=== PATIENT | female | born 1940 | race Caucasian/White ===

== ENCOUNTER 2017-02-01 04:22 | Emergency (ER) | payer MEDICARE ==
[~2017-02-01 04:22] MED LIST: ASP81TEC; ATEN25TA7; ATEN50TA7; LORA-302; ONDA8TAB10 PO; OXYC-530 PO; TUMS; [UNRECOGNIZED DRUG - CODE] PO; hctz
[2017-02-01 04:34] VITALS: BP 176/71; PULSE 57; RESP 10; O2SAT 95
[2017-02-01 04:42] LABS: BASOPHILS % (AUTO) 0.4 % (0-3); EOSINOPHILS % (AUTO) 2.6 % (0-5); Mean Corpuscular Hemoglobin 30.2 pg (27.0-35.0); NEUTROPHILS % (AUTO) 58.3 % (40-74); Platelet Count 250 bil/L (150-400)
--- NOTE | 2017-02-01 04:46 | ED.REPORT ---
HPI-Chest Pain 40 and Over Date of Service Feb 01, 2017 ED Provider: Mesfin Dempsey MD Pt is a 76 year old female with a history of anxiety, panic attacks, A-fib, HTN , GERD, and hyperlipidemia who presents to the ED complaining of heavy chest pain onset prior to arrival while she was sleeping. She c/o associated nausea, burping, diaphoresis, and SOB. She denies heartburn. She has noted intermittent swelling of the left foot only over the past few weeks, and presented to her doctor with that and was told "it was the aging process". The pt rates her chest pain as an 8/10, unchanged since onset. Nursing Notes Stated Complaint: CHEST PAIN Chief Complaint: Chest Pain Allergies: Coded Allergies: No Known Allergies (Verified , 02/01/17) Scheduled PRN Metaxalone (Skelaxin) 800 Mg Tablet 800 MG PO TID PRN PRN For Spasm Ondansetron ODT (Ondansetron ODT) 8 Mg Tab.rapdis 8 MG PO Q4H PRN PRN For Nausea oxyCODONE (oxyCODONE) 5 Mg Tablet 5-10 MG PO Q4H PRN PRN For Pain Miscellaneous Medications ([hctz]) Aspirin-Expunged Drug, Do Not Renew! (Aspirin EC-Expunged Drug, Do Not Renew!) 81 Mg Tablet Atenolol-Expunged Drug, Do Not Renew! (Atenolol-Expunged Drug, Do Not Renew!) 50 Mg Tablet Atenolol-Expunged Drug, Do Not Renew! (Atenolol-Expunged Drug, Do Not Renew!) 25 Mg Tablet Calcium Carbonate-Expunged Drug, Do Not Renew (Tums Chewable-Expunged Drug, Do Not Renew!) 500 Mg Tablet Lorazepam-Expunged Drug, Do Not Renew! (Lorazepam-Expunged Drug, Do Not Renew!) 0.5 Mg Tablet General Time Seen by MD: 04:45 Chief Complaint Chest pain Hx Obtained From: Patient, EMS Arrived By: Ambulance Sudden in Onset?: Yes Onset Occurred: Just prior to arrival Symptom Duration: Duration unknown Location: : Substernal Quality: Heaviness Radiation: : Does not radiate Migration/Movement: Reports: None Severity: Current: No pain currently Severity: Maximum: Moderate Recent Healthcare: No recent doctor visit, No recent hospitalization Similar Sx Previous: No Risk Factors )( CAD Risk Stratification Hyperlipidemia Hypertension Risk factors reviewed )( TAD Risk Stratification Risk factors reviewed )( PE Risk Stratification Other (unilateral leg edema) Risk factors reviewed Past Medical History Past Medical History Notes: PCP: Dr. Almendarez Past Medical History Anxiety Panic attacks Reports: GERD, Hyperlipidemia, Hypertension Reports: Atrial fibrillation Past Surgical History Reports: Cholecystectomy, Tonsillectomy Family History Father- esophageal cancer Mother- breast cancer Smoking History Former Smoker Social History Alcohol Use: Denies alcohol use Drug Use: Denies drug use Other Social History: Good social support Ambulatory Status Independent Review of Systems Denies heart burn + burping Respiratory: Reports: Shortness of breath Cardiovascular: Reports: Chest pain GI: Reports: Nausea Musculoskeletal: Denies: Extremity swelling Skin: Reports Diaphoresis Complete sys rev & neg: except as marked. Physical Exam Initial Vital Signs Vital Signs (First) Date Time Temp Pulse Resp B/P Pulse Ox O2 Delivery O2 Flow Rate FiO2 02/01/17 04:34 57 10 176/71 95 Room Air Initial VS: Reviewed Head / Eyes: Atraumatic, Normocephalic Neck: Supple, Full range of motion Extremities: Vascular intact, Neuro intact Skin: Warm, Dry, No cyanosis Neurologic: Alert, Oriented, Nonfocal Psychiatric: Mood/affect normal, Behavior normal General/Constitutional: Awake, Alert Respiratory / Chest: Atraumatic, Breath sounds NL, Breath sounds = bilat Cardiovascular: Heart rate NL, Regular rhythm, Heart sounds NL Edema in left foot (1+), 0 in right. Abdomen: Atraumatic, Soft, Non-tender Interpretation & Diagnostics Lab Results Interpretation Result Diagram: 02/01/17 0430 02/01/17 0430 Test 02/01/17 04:30 White Blood Count 7.0th/mm3 (3.8-10.1) Red Blood Count 4.74mil/mm3 (3.90-5.20) Hemoglobin 14.3g/dL (12.0-15.6) Hematocrit 43.6% (35.0-46.0) Mean Corpuscular Volume 92.0fL (81-100) Mean Corpuscular Hemoglobin 30.2pg (27.0-35.0) Mean Corpuscular Hemoglobin Concent 32.8% (32.0-37.0) Red Cell Distribution Width 13.2% (12.3-15.4) Platelet Count 250bil/L (150-400) Neutrophils (%) (Auto) 58.3% (40-74) Lymphocytes (%) (Auto) 28.0% (14-46) Monocytes (%) (Auto) 10.0% (4-12) Eosinophils (%) (Auto) 2.6% (0-5) Basophils (%) (Auto) 0.4% (0-3) Band Neutrophils % 1% (1-5) Prothrombin Time 9.7sec (8.1-12.5) Prothromb Time International Ratio 0.91ratio Activated Partial Thromboplast Time 25.2sec (22.8-33.0) D-Dimer 0.81mg/L FEU (<0.50) Sodium Level 141mEq/L (134-144) Potassium Level 3.7mEq/L (3.5-5.2) Chloride Level 101mEq/L (97-108) Carbon Dioxide Level 22mmol/L (18-29) Blood Urea Nitrogen 16mg/dL (8-27) Creatinine 0.72mg/dL (0.57-1.00) Estimat Glomerular Filtration Rate 113mL/min (>59) Glucose Level 128mg/dL (60-99) Calcium Level 9.7mg/dL (8.5-10.1) Magnesium Level 1.8mg/dL (1.6-2.6) Total Bilirubin 0.7mg/dL (0.0-1.2) Aspartate Amino Transf (AST/SGOT) 17U/L (0-50) Alanine Aminotransferase (ALT/SGPT) 10U/L (0-32) Alkaline Phosphatase 86U/L (25-165) Troponin T 0.010ug/L (0.0-0.011) Pro-B-Type Natriuretic Peptide 248.1pg/mL (0-738) Total Protein 7.5g/dL (6.4-8.4) Albumin 3.7g/dL (3.4-5.0) ECG Interpretation ECG Interpretation: Sinus rhythm with a rate of 51 Time: 04:42 Interpreted by: ED physician X-Ray Chest Interpretation Chest Xray Interpretation: Negative View: Portable, 1 view Interpretation / Wet Read by: Wet read ED physician Re-Eval/Medical Decision Med Decision/Clinical Course 76-year-old awakened with chest pain shortness of breath diaphoresis and mild nausea. Seems likely to be GERD related, with a completely normal cardiogram. However, she has an elevated d-dimer and unilateral leg edema. CT angios chest is pending. Signed out of [address] Harrison. Source of Hx: Old records Counseled Regarding: Diagnosis, Lab results Discharge & Departure Primary Impression: Chest pain Additional Impression: Elevated d-dimer Discharge Condition All VS Reviewed: Yes Condition: Stable Referrals: Duy Almendarez MD (PCP) Care Transferred to: Dr. Don Care Transferred at: 06:00 Jet Attestation Portions of this note were transcribed by Denise Guthrie. I, Dr. Dempsey personally performed the history, physical exam and medical decision-making; I reviewed and confirmed the accuracy of the information in the transcribed note. Signed by: Jet Lux, 01/31/17. copies to: Duy Almendarez MD, Christopher W MD Feb 01, 2017 04:46 Denise Rosario Feb 01, 2017 04:53
[2017-02-01] MEDS ORDERED: Pantoprazole 40 mg ER24 Tablet PO ONE (04:55)
[2017-02-01] MEDS ORDERED: Ondansetron 2 mg/mL 2 mL Inj IVPUSH ONE (04:55)
[2017-02-01 05:09] LABS: TROPONIN T 0.01 ug/L (0.0-0.011)
[2017-02-01 05:29] LABS: D-Dimer 0.81 mg/L FEU (<0.50); INR 0.91 ratio
[2017-02-01 05:31] LABS: Magnesium 1.8 mg/dL (1.6-2.6)
[2017-02-01 06:46] VITALS: BP 174/59; PULSE 49; RESP 10; O2SAT 97
[2017-02-01 08:09] VITALS: BP 139/59; PULSE 51; RESP 12; O2SAT 95
--- NOTE | 2017-02-01 08:38 | DRSVH ---
PROCEDURE: X-RAY CHEST ONE VIEW, PORTABLE ([id number]) INDICATIONS: chest pain TECHNIQUE: One view of the chest was acquired. COMPARISON: 05/12/2014; CTA chest 02/01/2017 FINDINGS: Surgical changes and devices: None. Lungs and pleura: No pleural effusions or pneumothorax. Lungs are clear. Mediastinum: Mediastinal contours appear normal. Heart size is normal. Aortic calcifications and mi ld tortuosity. Bones and chest wall: No suspicious bony lesions. Thoracic spondylosis. Overlying soft tissues appe ar unremarkable. IMPRESSION: 1. Atherosclerosis. 2. No acute cardiopulmonary abnormality. Dictated by: Juan West M.D. on 02/01/2017 at 8:35 Approved by: Juan West M.D. on 02/01/2017 at 8:36
[2017-02-01 09:14] VITALS: BP 139/59; PULSE 51; RESP 12; O2SAT 95
--- NOTE | 2017-02-01 09:14 | DRSVH ---
PROCEDURE: CT ANGIO CHEST PULMONARY EMBOLISM ([id number]) INDICATIONS: 76 year-old woman with chest pain, shortness of breath, elevated d dimer. TECHNIQUE: After the administration of intravenous contrast, 2 mm thick sections acquired from the pulmonary api elo to the posterior costophrenic angles. 3-dimensional maximum intensity projection (MIP) coronal a nd sagittal reformats were then acquired through the thorax. For radiation dose reduction, the follo wing was used: automated exposure control, adjustment of mA and/or kV according to patient size. COMPARISON: [facility], CT, CHEST ANGIO-PE, 01/26/2008, 13:47. FINDINGS: Image quality: Excellent. Pulmonary arteries: Pulmonary arteries are normal in size, and demonstrate no intraluminal filling d efects to suggest central pulmonary embolism. Lungs and pleura: There is a 1 cm groundglass nodule in the right upper lobe. A 6 mm nodule in the r ight middle lobe. Both nodules are new compared to the last CT on 01/26/2008. Lungs are clear. No ple ural effusions or pneumothorax. Central and peripheral airways are patent. Mediastinum: Heart size is normal, without pericardial effusion. There is moderate to severe aortic and coronary artery atherosclerosis. A mildly enlarged right paratracheal lymph node measures 1.3 cm . Thoracic aorta is normal in caliber and enhancement. Esophagus is normal in caliber, without hiat al hernia. Bones and chest wall: No suspicious bony lesions. Ribs and thoracic spine appear intact throughout. Thyroid gland is normal. No axillary or supraclavicular adenopathy. Abdomen: There is a 7 mm indeterminate hypodensity in liver, most likely a cyst. Visualized upper ab dominal solid organs appear normal in the early arterial phase of enhancement. IMPRESSION: 1. No evidence for central pulmonary embolism. 2. Moderate aortic and coronary artery atherosclerosis. 3. Two right lung nodules. Recommend CT followup. 4. A 7 mm indeterminate hypodense nodule in liver. Dictated by: Denzel Melo M.D. on 02/01/2017 at 9:01 Approved by: Denzel Melo M.D. on 02/01/2017 at 9:12
== END 2017-02-01 09:15 | disposition home or self-care (01) ==
LOC: SED 04:22
DX: R07.89 Other chest pain (principal); F41.9 Anxiety disorder, unspecified; F40.10 Social phobia, unspecified; R79.1 Abnormal coagulation profile; I48.91 Unspecified atrial fibrillation; I10 Essential (primary) hypertension; K21.9 Gastro-esophageal reflux disease without esophagitis; E78.5 Hyperlipidemia, unspecified; Z79.82 Long term (current) use of aspirin; Z87.891 Personal history of nicotine dependence
CPT/HCPCS: 36415; 71010; 71275; 80053; 83735; 83880; 84484; 85025; 85378; 85610; 85730; 93005; 96374; 96375; 99285; J2060; J2405; Q9967